=== PATIENT | female | born 1955 | race Caucasian/White ===

== ENCOUNTER 2018-10-14 09:57 | Emergency (ER) | payer BC ==
[2018-10-14] MEDS ORDERED: SODIUM CHLORIDE 0.9% 1,000 ML IV STA (10:02)
[2018-10-14 10:07] LABS: Glucose,Whole Blood 103 mg/dL (75-99)
[2018-10-14 10:18] LABS: Basophils % (A) 0 %; Eosinophils # (A) 0.1 k/uL (0-0.7); Eosinophils % (A) 2 %; HGB 13.1 gm/dL (11.4-16.0); Lymphocytes # (A) 1.3 k/uL (1.0-4.8); Lymphocytes % (A) 15 %; MCH 33.3 pg (25.0-35.0); MCHC 32.8 g/dL (31.0-37.0); MCV 101.6 fL (80.0-100.0); Macrocytosis Slight; Monocytes # (A) 0.3 k/uL (0-1.0); Monocytes % (A) 3 %; Neutrophils # (A) 6.8 k/uL (1.3-7.7); Neutrophils % (A) 80 %; Platelet Count 284 k/uL (150-450); RBC 3.94 m/uL (3.80-5.40); RDW 14.1 % (11.5-15.5); WBC 8.5 k/uL (3.8-10.6)
--- NOTE | 2018-10-14 10:21 | ED ---
General Adult HPI - General Chief complaint: Neuro Symptoms/Deficit Stated complaint: Poss Stroke Time Seen by Provider: 10/14/18 10:02 Source: patient, EMS, RN notes reviewed, old records reviewed Mode of arrival: EMS Limitations: no limitations - History of Present Illness Initial comments: 62-year-old female history of Parkinson's presents for evaluation of right-sided weakness and difficulty speaking. Patient was found this morning at approximate ly 9 AM, she had fallen twice with injury to the right forearm. This was bandaged by paramedics prior to transport. There was no head trauma. She is not on anticoagulation. She was last seen well at 11 PM yesterday evening. Uncertain if her symptoms began this morning or they were found when she awoke. She is unable to communicate any history. She is accompanied by her mother. - Related Data Home Medications Medication Instructions Recorded Confirmed ALPRAZolam [Xanax] 0.25 mg PO BID 10/14/18 10/14/18 Carbidopa-Levodopa 25-100 mg 1 tab PO Q2H 10/14/18 10/14/18 [Sinemet 25-100 mg] Trihexyphenidyl [Artane] 2 mg PO TID 10/14/18 10/14/18 Valbenazine Tosylate [Ingrezza] 80 mg PO DAILY 10/14/18 10/14/18 Allergies Allergy/AdvReac Type Severity Reaction Status Date / Time No Known Allergies Allergy Verified 10/14/18 10:15 Review of Systems ROS Statement: Those systems with pertinent positive or pertinent negative responses have been documented in the HPI. ROS Other: All systems not noted in ROS Statement are negative. Past Medical History Past Medical History: GERD/Reflux Additional Past Medical History / Comment(s): parkinsons History of Any Multi-Drug Resistant Organisms: None Reported, MRSA Date of last positivie culture/infection: 2004 MDRO Source:: axilla Past Surgical History: Section Past Psychological History: No Psychological Hx Reported Smoking Status: Former smoker Past Alcohol Use History: Occasional Past Drug Use History: None Reported General Exam Limitations: no limitations General appearance: lethargic Head exam: Present: atraumatic, normocephalic Eye exam: Present: normal appearance, PERRL, EOMI, other (Right leland-neglect) Neck exam: Present: normal inspection. Absent: tenderness, meningismus Respiratory exam: Present: rhonchi, decreased breath sounds. Absent: respiratory distress Cardiovascular Exam: Present: regular rate, normal rhythm GI/Abdominal exam: Present: soft. Absent: distended, tenderness, guarding, rebound Extremities exam: Present: normal capillary refill. Absent: pedal edema, calf tenderness Neurological exam: Present: motor sensory deficit (NIH is 10, she has right upper extremity drift, she is aphasic, she has right facial droop, right leland- neglect. ). Absent: oriented X3, CN II-XII intact Skin exam: Present: warm, dry, intact. Absent: cyanosis, diaphoretic Course Vital Signs 10/14/18 10/14/18 10/14/18 10:00 10:20 10:35 Temperature 97.9 F 99.5 F 98.7 F Pulse Rate 97 102 H 103 H Respiratory 18 20 18 Rate Blood Pressure 127/59 119/71 O2 Sat by Pulse 96 98 99 Oximetry 10/14/18 10:50 Temperature 98.7 F Pulse Rate 87 Respiratory 16 Rate Blood Pressure 131/86 O2 Sat by Pulse 98 Oximetry - Reevaluation(s) Reevaluation #1: 10/14/18 [address] Chang, he was able to review the images, she is not a TPA candidate due to time course and she is not a candidate for thrombectomy. Recommends IV fluids, aspirin, statin. EKG Findings - EKG Comments: EKG Findings:: EKG: Normal sinus rhythm, rate of 100, ID interval 158, QRS duration 86, QTC [address] segment elevation. Medical Decision Making - Medical Decision Making 62-year-old female history of Parkinson's disease presents with aphasia, right facial droop, right upper extremity weakness. She was last seen well at 11 PM yesterday. She presents at approximately 23 hours since last seen well. She did fall and this morning was found by her mother. Patient is a phasic and u nable to give any history. She will answer simple questions yes or no with head nodding. She denies pain complaints. Head CT is obtained, negative for intracranial hemorrhage. CT angiography is performed, there is concern for left MCA occlusion, these images are reviewed by stroke neurologist Dr. Chang, who believes this vessel is smaller in caliber but there is no acute occlusion, does not recommend TPA or thrombectomy. Patient has normal CBC, normal CMP, she is in sinus rhythm. She's given rectal aspirin and 2 L of normal saline. She will be transferred for neurology evaluation as this institution does not have neurology coverage at this time. Case is discussed with Dr. Sue will accept patient [facility]. - Lab Data Result diagrams: 10/14/18 10:05 10/14/18 10:05 Lab Results 10/14/18 10/14/18 10/14/18 Range/Units 10:03 10:05 10:05 WBC 8.5 (3.8-10.6) k/uL RBC 3.94 (3.80-5.40) m/uL Hgb 13.1 (11.4-16.0) gm/dL Hct 40.0 (34.0-46.0) % MCV 101.6 H (80.0-100.0) fL MCH 33.3 (25.0-35.0) pg MCHC 32.8 (31.0-37.0) g/dL RDW 14.1 (11.5-15.5) % Plt Count 284 (150-450) k/uL Neutrophils % 80 % Lymphocytes % 15 % Monocytes % 3 % Eosinophils % 2 % Basophils % 0 % Neutrophils # 6.8 (1.3-7.7) k/uL Lymphocytes # 1.3 (1.0-4.8) k/uL Monocytes # 0.3 (0-1.0) k/uL Eosinophils # 0.1 (0-0.7) k/uL Basophils # 0.0 (0-0.2) k/uL Macrocytosis Slight PT (9.0-12.0) sec INR (<1.2) APTT (22.0-30.0) sec Sodium 142 (137-145) mmol/L Potassium 4.3 (3.5-5.1) mmol/L Chloride 109 H (98-107) mmol/L Carbon Dioxide 21 L (22-30) mmol/L Anion Gap 12 mmol/L BUN 8 (7-17) mg/dL Creatinine 0.61 (0.52-1.04) mg/dL Est GFR (CKD-EPI)AfAm >90 (>60 ml/min/1.73 sqM) Est GFR (CKD-EPI)NonAf >90 (>60 ml/min/1.73 sqM) Glucose 102 H (74-99) mg/dL POC Glucose (mg/dL) 103 H (75-99) mg/dL POC Glu [employer] ID Jovanna Austin Calcium 9.6 (8.4-10.2) mg/dL Total Bilirubin 0.6 (0.2-1.3) mg/dL AST 17 (14-36) U/L ALT 13 (9-52) U/L Alkaline Phosphatase 88 (38-126) U/L Total Creatine Kinase (30-135) U/L CK-MB (CK-2) (0.0-2.4) ng/mL CK-MB (CK-2) Rel Index Troponin I (0.000-0.034) ng/mL Total Protein 6.8 (6.3-8.2) g/dL Albumin 4.2 (3.5-5.0) g/dL 10/14/18 10/14/18 Range/Units 10:05 10:05 WBC (3.8-10.6) k/uL RBC (3.80-5.40) m/uL Hgb (11.4-16.0) gm/dL Hct (34.0-46.0) % MCV (80.0-100.0) fL MCH (25.0-35.0) pg MCHC (31.0-37.0) g/dL RDW (11.5-15.5) % Plt Count (150-450) k/uL Neutrophils % % Lymphocytes % % Monocytes % % Eosinophils % % Basophils % % Neutrophils # (1.3-7.7) k/uL Lymphocytes # (1.0-4.8) k/uL Monocytes # (0-1.0) k/uL Eosinophils # (0-0.7) k/uL Basophils # (0-0.2) k/uL Macrocytosis PT 10.0 (9.0-12.0) sec INR 0.9 (<1.2) APTT 20.3 L (22.0-30.0) sec Sodium (137-145) mmol/L Potassium (3.5-5.1) mmol/L Chloride (98-107) mmol/L Carbon Dioxide (22-30) mmol/L Anion Gap mmol/L BUN (7-17) mg/dL Creatinine (0.52-1.04) mg/dL Est GFR (CKD-EPI)AfAm (>60 ml/min/1.73 sqM) Est GFR (CKD-EPI)NonAf (>60 ml/min/1.73 sqM) Glucose (74-99) mg/dL POC Glucose (mg/dL) (75-99) mg/dL POC Glu [employer] ID Calcium (8.4-10.2) mg/dL Total Bilirubin (0.2-1.3) mg/dL AST (14-36) U/L ALT (9-52) U/L Alkaline Phosphatase (38-126) U/L Total Creatine Kinase 76 (30-135) U/L CK-MB (CK-2) 0.4 (0.0-2.4) ng/mL CK-MB (CK-2) Rel Index 0.5 Troponin I <0.012 (0.000-0.034) ng/mL Total Protein (6.3-8.2) g/dL Albumin (3.5-5.0) g/dL Critical Care Time Critical Care Time: Yes Total Critical Care Time: 35 Disposition Clinical Impression: Cerebrovascular accident Disposition: OTHER INSTITUTION NOT DEFINED Condition: Serious Is patient prescribed a controlled substance at d/c from ED?: No Referrals: Hannah Dee MD [Primary Care Provider] - 1-2 days Time of Disposition: 11:20 - Out of Hospital Transfer - Req. Specs Out of Hospital Transfer - Requested Specifics: Other Emergency Center (Tr ansferred to [facility])
--- NOTE | 2018-10-14 10:29 | CT ---
EXAMINATION TYPE: CT brain wo con for TPA DATE OF EXAM: 10/14/2018 COMPARISON: NONE HISTORY: ALtered mental status, right side weakness, turns and looks to left. CT DLP: 1134 mGycm Automated exposure control for dose reduction was used. FINDINGS: There are generalized changes of sulcal prominence and ventriculomegaly, compatible with atrophic lilia nge. There is diffuse periventricular white matter lucency, compatible with chronic white matter isch emic change. There is no acute focal lesion, mass effect or midline shift identified. I do not see ev idence of intracranial blood. Visualized portions of the paranasal sinuses and mastoids are clear. The bony calvarium is intact. IMPRESSION: 1. NO ACUTE INTRACRANIAL LESION. 2. DEGENERATIVE CHANGE.
[2018-10-14 10:33] LABS: ALT 13 U/L (9-52); AST 17 U/L (14-36); African American GFR (CKD) >90 (>60 ml/min/1.73 sqM); Albumin 4.2 g/dL (3.5-5.0); Alkaline Phosphatase 88 U/L (38-126); Anion Gap 12 mmol/L; Blood Urea Nitrogen 8 mg/dL (7-17); Calcium 9.6 mg/dL (8.4-10.2); Carbon Dioxide 21 mmol/L (22-30); Chloride 109 mmol/L (98-107); Glucose 102 mg/dL (74-99); Potassium 4.3 mmol/L (3.5-5.1); Sodium 142 mmol/L (137-145); Total Bilirubin 0.6 mg/dL (0.2-1.3); Total Protein 6.8 g/dL (6.3-8.2)
[2018-10-14 10:38] LABS: INR 0.9 (<1.2)
[2018-10-14 10:40] LABS: Creatine Kinase 76 U/L (30-135); Partial Thromboplastin Time 20.3 sec (22.0-30.0)
[2018-10-14] MEDS ORDERED: SODIUM CHLORIDE 0.9% 1,000 ML IV ONE (10:46)
[2018-10-14 10:52] VITALS: TEMP 98.7
[2018-10-14 10:53] LABS: Creatine Kinase MB 0.4 ng/mL (0.0-2.4); Troponin I <0.012 ng/mL (0.000-0.034)
--- NOTE | 2018-10-14 11:00 | CT ---
EXAMINATION TYPE: CT angio head neck DATE OF EXAM: 10/14/2018 HISTORY: ALtered mental status, right side weakness, turns and looks to left. COMPARISON: None. CT DLP: 405.2 mGycm. Automated Exposure Control for Dose Reduction was Utilized. TECHNIQUE: CTA scan of the neck is performed with IV Contrast, patient injected with 50 mL of Isovue 370, axial images are obtained, coronal and sagittal reformatted images are reviewed. Three-D recons tructed images are created on an independent workstation and reviewed. FINDINGS: Visualized portions of the lungs are clear. Soft tissues of the neck are unremarkable. The parapharyngeal, oropharyngeal and laryngeal soft tissu es are normal. There is a hypoattenuating, 1.2 cm low attenuating lesion in the left lobe of the thyr oid. There is no significant cervical adenopathy. Visualized internal cranial structures are unremarkable. Vertebral body height and alignment are maintained. Atlantoaxial relationships are normal. Visualized portions of the paranasal sinuses and mastoids are clear. There is a normal origin of the great vessels. The vertebral arteries are codominant. There is no significant stenosis in either carotid bulb or proximal internal carotid artery. There is minimal calcification at the level of the right carotid bulb. CTA of the [place] shows less than ideal contrast enhancement. No definite branch occlusion is seen. There may be slightly more vessels visualized on the right than the left. The anterior cereb ral arteries appear patent. The posterior circulation appears unremarkable. IMPRESSION: 1. NO SIGNIFICANT STENOSIS IN THE CAROTID ARTERIES. 2. SUBOPTIMAL VISUALIZATION OF THE [place] WITH A QUESTIONABLE POSSIBILITY OF MIDDLE CEREBRA L ARTERY VESSELS ON THE LEFT.
[2018-10-14] MEDS ORDERED: ASPIRIN 300 MG SUPP RECTAL STA (11:07)
--- NOTE | 2018-10-14 11:08 | XR ---
EXAMINATION TYPE: XR chest 1V portable DATE OF EXAM: 10/14/2018 HISTORY: altered mental status. REFERENCE: Previous study dated 03/01/2013. FINDINGS: Lung volumes are prominent. The heart is normal in size. The lungs are clear. IMPRESSION: COPD.
[2018-10-14 11:39] VITALS: RESP 18
[2018-10-14 11:45] VITALS: BP 142/91; PULSE 92
== END 2018-10-14 11:49 | disposition other institution (70) ==
LOC: EC 09:57
DX: I63.9 Cerebral infarction, unspecified (principal); R29.708 NIHSS score 8; G20 Parkinson's disease; Z86.14 Personal history of Methicillin resistant Staphylococcus aureus infection; Z87.891 Personal history of nicotine dependence; Z79.899 Other long term (current) drug therapy
CPT/HCPCS: 36415; 93005; 80053; 82550; 82553; 84484; 85025; 85610; 85730; 71045; 70496; 70450; 70498; 99291; 96360; Q9967